=== PATIENT | male | born 1955 | race American Indian/Alaskan Native ===

== ENCOUNTER 2022-04-18 00:36 | Emergency (ER) | payer SELFPAY ==
[2022-04-18 00:56] VITALS: BP 139/93
[2022-04-18] MEDS ORDERED: ASPIRIN 325 MG TAB PO ONE (00:57)
--- NOTE | 2022-04-18 01:33 | XRay Report ---
CHEST 2 VIEWS INDICATION / CLINICAL INFORMATION: chest pain. COMPARISON: 10/17/2018 FINDINGS: SUPPORT DEVICES: None. HEART / MEDIASTINUM: No significant abnormality. LUNGS / PLEURA: No significant pulmonary or pleural abnormality. No pneumothorax. ADDITIONAL FINDINGS: No significant additional findings. IMPRESSION: 1. No acute findings. Signer Name: Randy Hernández DO Signed: 04/18/2022 1:28 AM Workstation Name: [id number] [id number]
[2022-04-18 01:43] LABS: Basophils # (Auto) 0.1 K/mm3 (0.0-0.1); Basophils % (Auto) 1.5 % (0.0-1.8); Eosinophils # (Auto) 0.5 K/mm3 (0.0-0.4); Eosinophils % (Auto) 8.4 % (0.0-4.3); Hematocrit 43.9 % (35.5-45.6); Hemoglobin 14.5 gm/dl (11.8-15.2); Lymphocytes % (Auto) 35.3 % (13.4-35.0); Mean Corpuscular HGB Conc 33 % (32-34); Mean Corpuscular Volume 94 fl (84-94); Monocytes # (Auto) 0.5 K/mm3 (0.0-0.8); Monocytes % (Auto) 9.2 % (0.0-7.3); Platelet Count 201 K/mm3 (140-440); Red Blood Count 4.67 M/mm3 (3.65-5.03); Red Cell Distribution Width 14.2 % (13.2-15.2)
[2022-04-18 01:51] LABS: Alanine Aminotransferase 21 units/L (7-56); Albumin 4.1 g/dL (3.9-5); BUN/Creatinine Ratio 9; Blood Urea Nitrogen 14 mg/dL (9-20); Calcium 9.8 mg/dL (8.4-10.2); Hemolysis Index 77
--- NOTE | 2022-04-19 10:43 | Electrocardiograph Report ---
[facility] Test Date: 2022-04-18 Test Time: 00:50:20 Pat Name: MICHELE REYES Department: Room: Gender: M [employer]: MABEL : 1955 Requested By: ED DOC Order Number: [id number] Reading MD: Charles Bermudez Measurements Intervals [place] Rate: 68 P: 70 SD: 176 QRS: 55 QRSD: 68 T: 26 QT: 399 QTc: 424 Interpretive Statements Sinus rhythm No previous ECG available for comparison Electronically Signed On 04-19-2022 10:43:30 EDT by Charles Bermudez
== END 2022-04-18 18:39 | disposition left against medical advice (07) ==
LOC: ED 00:36
DX: R07.9 Chest pain, unspecified (principal); R10.9 Unspecified abdominal pain; Z53.21 Procedure and treatment not carried out due to patient leaving prior to being seen by health care provider
CPT/HCPCS: 36415; 71046; 80053; 84484; 85025; 93005